=== PATIENT | female | born 1945 | race Caucasian/White ===

== ENCOUNTER 2023-02-28 10:41 | Emergency (ER) | payer OTHER ==
[~2023-02-28] VITALS: Ht 152.4 cm; Wt 52.2 kg
[2023-02-28 12:14] LABS: BASOPHILS 0.6 % (0-2); EOSINOPHILS 0.8 % (0-6); HEMATOCRIT 37.3 % (35.0-50.0); HEMOGLOBIN 12.3 g/dL (12.0-18.0); LYMPHOCYTES 11.2 % (24-44); MCV 90.8 fl (81-99); MONOCYTES 8.9 % (0-12); NEUTROPHILS 78.5 % (39-80); PLATELET COUNT 294 K/uL (140-440); RBC 4.11 M/ul (4.3-5.7); RDW 13.4 (10.5-15.0)
[2023-02-28 12:24] LABS: BUN/CREATININE RATIO 22.35 (6.0-28.6); CALCIUM 8.7 mg/dL (8.5-10.1); CREATININE, SERUM 0.85 mg/dL (0.55-1.02)
[2023-02-28] MEDS ORDERED: PERCOCET 5-3251 EACH PO (14:35)
[2023-02-28 14:54] VITALS: BP 130/75
== END 2023-02-28 14:55 | disposition home or self-care (01) ==
LOC: ED 10:41
PROVIDERS: Emergency Medicine
DX: S43.005A Unspecified dislocation of left shoulder joint, initial encounter (principal); T14.8XXA Other injury of unspecified body region, initial encounter; W10.9XXA Fall (on) (from) unspecified stairs and steps, initial encounter; Z88.5 Allergy status to narcotic agent
CPT/HCPCS: 36415; 70450; 70553; 72125; 73030; 73110; 80048; 85025; 96374; 99284-25; A9579; J2060